=== PATIENT | male | born 1985 | race Caucasian/White ===

== ENCOUNTER 2018-11-20 14:57 | Emergency (ER) | payer OTHER, SELFPAY ==
--- NOTE | 2018-11-20 14:59 | W.ED.GENAD ---
Discharge Plan Disposition Patient Disposition: HOME Discharge Details Chief Complaint: Allergic Clinical Impression: Bee sting Primary Care Provider: Cesar Almanzar ED Provider: Dave Benson Home Meds and New Rx's Prescriptions: No Action calcium carbonate 500 MG tablet,chewable 500 - 1,000 mg CH PRN PRN (Reason: Heartburn) RF: 0 Excedrin Migraine 1 EACH tablet 2 - 4 ea PO PRN PRN (Reason: Headaches) RF: 0 ondansetron 4 MG tablet,disintegrating 4 mg PO Q6H PRN PRNQty: 10 RF: 1 methylphenidate HCl 20 mg Tablet 20 mg PO DAILY RF: 0 Discharge Instructions Instructions: Insect Bite or Sting (ED) Additional Instructions: You were seen in the emergency department today for evaluation of a bee sting. Return to the emergency department immediately if you develop any vomiting, difficulty breathing, feeling like your throat is closing, or for any other concerning or worsening symptoms at all. Referrals: Cesar Almanzar [Primary Care Provider] - Medical Decision Making This patient is a 33-year-old male who presents to the emergency department with a chief complaint of possible allergic reaction to bee stings. Patient currently has no evidence of allergic reaction or anaphylaxis. He will be observed in the emergency department for 1 hour. If he continues to look well without any evidence of allergic reaction, he will be discharged home. Patient will be provided return precautions and discharge instructions. He agrees with this plan. HPI This patient is a 33-year-old male who presents to the emergency department with concern that he might have an allergic reaction. He was stung by a bee about 30 minutes ago. One stung him behind the right ear and one stung him on the chest. He states that when he was much younger, around age 6 or 7 he had an allergic reaction to bee stings. He denies any nausea, vomiting, abdominal pain, difficulty breathing or rash. No throat swelling. He has been sick recently with cold symptoms. Otherwise no other recent illness. Nothing has made it better or worse. It is a burning pain behind the right ear and a sharp pain on his chest. General Date/Time Provider Initiated Documentation: 11/20/18 14:59. Related Data Home Medications Medication Instructions Recorded Confirmed Excedrin Migraine 2 - 4 ea PO PRN PRN 06/04/15 11/20/18 calcium carbonate 500 - 1,000 mg CH PRN PRN 06/04/15 11/20/18 ondansetron 4 mg PO Q6H PRN PRN #10 tabef 06/05/15 11/20/18 methylphenidate HCl 20 mg PO DAILY 11/20/18 11/20/18 Previous Rx's Medication Instructions Recorded ondansetron 4 mg PO Q6H PRN PRN #10 tabef 06/05/15 Allergies Allergy/AdvReac Type Severity Reaction Status Date / Time bees Allergy Uncoded 11/20/18 15:05 pollen Allergy Visual Uncoded 01/11/16 08:30 Disturbances Review of Systems Review of Systems Gen: no fevers. Card: no chest pain. Resp: No cough, difficulty breathing. Abd: no vomiting, abd pain. [facility] Medical History Allergic rhinitis Migraine, unspecified, intractable, with status migrainosus Sleep disturbance Surgical History Appendectomy Social History Smoking/Tobacco Use Status: Former Tobacco Use Alcohol Intake: current Drug use: Never Substance use type: does not use Do you feel safe in your relationship?: Yes Exam Narrative Exam Narrative: Gen: no acute distress, alert. Eyes: Pupils equal, reactive to light, EOMs intact. ENT: nose and ears normal, posterior pharynx without injection or swelling. Neck: normal ROM. Lung: Clear to auscultation bilaterally, no respiratory distress. Card: RRR, normal S1, S2, no M/R/G. 2+ radial pulses bilaterally. Abd: soft, non-tender, no hepatosplenomegaly. Upper extremity: no evidence of trauma. Lower extremity: no edema. Neuro: speech normal, no gross motor deficits. Psych: alert and oriented to person, place time, normal affect. Skin: warm, intact.
[2018-11-20 15:01] VITALS: BP 140/86; PULSE 99; RESP 16; TEMP 36.8
[2018-11-20 15:44] VITALS: BP 140/80; PULSE 77; RESP 16; TEMP 36.8; O2SAT 97
== END 2018-11-20 15:40 | disposition home or self-care (01) ==
PROVIDERS: Emergency Provider Emergency Medicine; PCP Family Medicine
DX: T63.441A Toxic effect of venom of bees, accidental (unintentional), initial encounter (principal)
CPT/HCPCS: 99282

== ENCOUNTER 2019-03-23 16:35 | Outpatient (REF) | payer OTHER, SELFPAY ==
[2019-03-23 19:09] LABS: Anion Gap 9.8 mmol/L (3-11); BUN 20 mg/dL (7-18); CO2 27.2 mmol/L (21.0-32.0); CREATININE 1.06 mg/dL (0.70-1.30); Calcium 9.3 mg/dL (8.5-10.1); Chloride 104 mmol/L (98-107); Glucose 92 mg/dL (74-106); Potassium 4.1 mmol/L (3.5-5.1); Sodium 141 mmol/L (136-145)
[2019-03-23 19:27] LABS: HGB 14.8 g/dL (13.5-17.5); Mean Corp. HGB Concentration 34.4 g/dL (32.0-36.0); Mean Corpuscular Hemoglobin 28.8 pg (27.0-33.0); Mean Corpuscular Volume 83.7 fL (80-95); Mean Platelet Volume 11.3 fL (8.0-11.0); Platelet Count 275 x1000/uL (130-400); RBC 5.14 m/cumm (4.50-6.00); RBC Distribution Width 12.6 % (11.8-14.1)
== END 2019-03-23 16:55 ==
LOC: NCHCN 16:35
PROVIDERS: PCP Family Medicine; Visit Provider Nurse Practitioner Family
DX: R10.9 Unspecified abdominal pain (principal); K92.1 Melena
CPT/HCPCS: 80048; 85027

== ENCOUNTER 2019-03-27 07:26 | Outpatient (CLI) | payer OTHER, SELFPAY ==
--- NOTE | 2019-03-27 09:05 | DI.US_ITS ---
EXAM: US RENAL CLINICAL HISTORY: ABDOMINAL WALL PAIN, RIGHT LOWER QUADRANT, PT QUESTIONS KIDNEY STONES, HEAVY CONSU MPTION OF ENERGY DRINK TECHNIQUE: Ultrasound performed using standard protocol. COMPARISON: HERNIA INGUINAL from 09/13/2017 FINDINGS: The left kidney measures 11.3 centimeters long. No solid renal mass, calculus or obstruction is iden tified. Blood flow is seen to the left kidney. The right kidney measures 11.2 centimeters long. No renal calculus or obstruction is seen. There is a question of a 2.2 x 2.7 x 1.8 centimeter solid renal mass in the superior pole medially. CT scan should be considered for further evaluation. There is blood flow to the right kidney. The prevoid urinary bladder volume was only 17 cc. Both ureteral jets were visualized. Prostate gla nd is within normal limits at 7.2 cc. IMPRESSION: Question of a 2.7 centimeter soft tissue mass arising from the superior pole of the right kidney. CT scan is recommended for further evaluation.
--- NOTE | 2019-03-27 09:20 | DI.US_ITS ---
EXAM: US HERNIA CLINICAL HISTORY: ABDOMINAL WALL PAIN, RIGHT LOWER QUADRANT, WORSE AFTER ACTIVITY, R10.9, S/P HERNIA REPAIR X2 TECHNIQUE: Ultrasound performed using standard protocol. COMPARISON: HERNIA INGUINAL from 09/13/2017 FINDINGS: No sonographic evidence of a right inguinal hernia is noted. No cystic or solid mass is seen sonogra phically. If there is continued clinical concern, a CT scan may be obtained for further evaluation.
== END 2019-03-27 07:46 ==
PROVIDERS: PCP Family Medicine; Visit Provider Nurse Practitioner Family
DX: R10.31 Right lower quadrant pain (principal); Z98.890 Other specified postprocedural states; N28.89 Other specified disorders of kidney and ureter
CPT/HCPCS: 76770; 76857

== ENCOUNTER 2019-03-29 00:33 | Outpatient (CLI) | payer OTHER, SELFPAY ==
[2019-03-29] MEDS: Omnipaque 350 MG/ML 100 ML BTL IJ (09:08)
--- NOTE | 2019-03-29 09:10 | DI.CT_ITS ---
EXAM: CT ABDOMEN W CLINICAL HISTORY: F/U ABNL US, KIDNEY MASS,N28.89,ABD WALL PAIN,R10.9 TECHNIQUE: Imaging Protocol: Axial computed tomography images with coronal and sagittal reformatted images were created and reviewed CONTRAST MATERIAL: Intravenous: Omnipaque 350 Contrast volume:100 mL contrast route:IV - Oral: Yes COMPARISON: US RENAL from 03/27/2019 US HERNIA from 03/27/2019 FINDINGS: ABDOMEN: Lung Bases: Normal where visualized. Liver: Normal density. No measurable mass. Gallbladder and biliary tract: No radiodense calculus or dilation. Pancreas: Normal density, no abnormal calcifications or inflammatory process. Spleen: Normal. Kidneys: Normal size, contour and axis. No radiodense stones or obstructive uropathy. No masses seen. Adrenal glands: No masses seen. Abdominal Aorta: Abdominal portion non-dilated. Lymph nodes: Within normal limits. Bones: Within normal limits. Peritoneum: No pneumoperitoneum or ascites. IMPRESSION: Unremarkable CT scan of the abdomen. No evidence of a renal mass. DATA REPOSITORY: All CT scans at this facility are submitted to the National Radiology Data Registry (NRDR) Dose Index Registry (DIR) with the [employer] (A[employer]). RADIATION OPTIMIZATION: All CT scans at this facility use at least one of these dose optimization te chniques: automated exposure control; mA and/or kV adjustment per patient size (includes targeted exa ms where dose is matched to clinical indication); or iterative reconstruction.
[2019-03-29] MEDS: Breeza Beverage 473 ML BTL PO (09:11)
[2019-03-29] MEDS: Omnipaque 350 MG/ML 50 ML BTL PO (09:13)
== END 2019-03-29 00:53 ==
PROVIDERS: PCP Family Medicine; Visit Provider Nurse Practitioner Family
DX: N28.89 Other specified disorders of kidney and ureter (principal); R10.84 Generalized abdominal pain
CPT/HCPCS: 74160; J3490; Q9967

== ENCOUNTER 2019-12-19 17:38 | Outpatient (REF) | payer OTHER, SELFPAY ==
[2019-12-26 00:03] LABS: Methylphenidate 510 ng/mL; Ritalinic Acid >10000 ng/mL
== END 2019-12-19 17:58 ==
LOC: NCHCN 17:38
PROVIDERS: PCP Family Medicine; Visit Provider Family Medicine
DX: R41.840 Attention and concentration deficit (principal)
CPT/HCPCS: 80360

== ENCOUNTER 2020-01-31 14:37 | Outpatient (REF) | payer OTHER, SELFPAY ==
[2020-02-04 17:32] LABS: Patient Race White; SARS-CoV-2 RNA Undetected (Undetected); SARS-CoV-2 Specimen Source Nasal
== END 2020-01-31 14:57 ==
LOC: NCHCN 14:37
PROVIDERS: PCP Family Medicine; Visit Provider Physician Assistant
DX: Z20.828 Contact with and (suspected) exposure to other viral communicable diseases (principal)
CPT/HCPCS: U0003

== ENCOUNTER 2020-03-26 18:22 | Outpatient (REF) | payer OTHER, SELFPAY ==
[2020-03-28 15:09] LABS: COVID-19 RT-PCR UVMMC Result Negative (Negative)
== END 2020-03-26 18:42 ==
LOC: NCHCN 18:22
PROVIDERS: PCP Family Medicine; Visit Provider Nurse Practitioner Family
DX: J06.9 Acute upper respiratory infection, unspecified (principal)
CPT/HCPCS: U0003

== ENCOUNTER 2022-07-16 18:07 | Outpatient (REF) | payer OTHER, SELFPAY ==
[2022-07-16 18:43] LABS: Hemoglobin A1C 5.8 % (<5.7)
[2022-07-16 18:44] LABS: Calculated LDL 202 mg/dL (<100); Cholesterol 275 mg/dL (<200); HDL Cholesterol 44 mg/dL (40-60); Triglyceride 145 mg/dL (<150)
== END 2022-07-16 18:08 | disposition home or self-care (01) ==
LOC: NCHCN 18:07
PROVIDERS: PCP Family Medicine; Visit Provider Family Medicine
DX: Z00.00 Encounter for general adult medical examination without abnormal findings (principal); Z13.1 Encounter for screening for diabetes mellitus; Z13.220 Encounter for screening for lipoid disorders
CPT/HCPCS: 80061; 83036

== ENCOUNTER 2023-01-26 17:30 | Outpatient (REF) | payer OTHER, SELFPAY ==
[2023-01-26 19:49] LABS: Hemoglobin A1C 5.3 % (<5.7)
[2023-01-26 20:00] LABS: Calculated LDL 152 mg/dL (<100); Cholesterol 223 mg/dL (<200); HDL Cholesterol 46 mg/dL (40-60); Triglyceride 127 mg/dL (<150)
== END 2023-01-26 17:31 | disposition home or self-care (01) ==
LOC: NCHCN 17:30
PROVIDERS: PCP Family Medicine; Visit Provider Family Medicine
DX: E78.5 Hyperlipidemia, unspecified (principal); R73.03 Prediabetes
CPT/HCPCS: 80061; 83036

== ENCOUNTER 2023-10-20 19:57 | Outpatient (REF) | payer OTHER, SELFPAY ==
--- OUTSIDE RECORDS SUMMARY | 2023-10-20 19:59 | XMS_ITS | Clinical Summary ---
Author Organization [facility] Address [address] [place] [address] Care Team Providers Care Site Leader Name Role Phone Unknown, Provider Primary Care Provider [phone] Social History Tobacco Use Types Packs/Day Years Used Date Smoking Tobacco: Never Assessed Sex and Gender Information Value Date Recorded Sex Assigned at Not on file Gender Identity Not on file Sexual Orientation Not on file Plan of Treatment Health Maintenance Due Date Last Done Comments Hepatitis C Screen 1986 Hepatitis B Vaccine (1 of 3 - 19+ 3-dose series) 03/13 COVID-19 Vaccine ( season) 2022 Care Teams Site Leader Relationship Specialty Start Date End Date Unknown, Provider, PCP - General 12/03/11
--- OUTSIDE RECORDS SUMMARY | 2023-10-20 19:59 | XMS_ITS | Encounter Summary ---
Author Organization [facility] Address [address] [place] [address] Care Team Providers Care Hook Up Driver Name Role Phone Unknown, Provider Primary Care Provider [phone] Encounter Details Date Type Department Care Team (Late st Contact Info) Description 03/27/2020 Lab Requisition [facility] - [address] [address] Outr Resulting Lab, Provider Social History Tobacco Use Types Packs/Day Years Used Date Smoking Tobacco: Never Assessed Sex and Gender Information Value Date Recorded Sex Assigned at Not on file Gender Identity Not on file Sexual Orientation Not on file documented as of this encounter Plan of Treatment Not on file documented as of this encounter Procedures Procedure Name Priority Date/Time Associated Diagnosis Comments ZZCOVID-19 TEST [facility] PCR Today 03/26/2020 17:40 EST COVID-19 TESTING Routine 03/26/2020 17:4 0 EST documented in this encounter Results * COVID-19 TEST [facility] PCR (03/26/2020 17:40 EST) Swab ENTIRE NASOPHARYNX / Unknown 03/26/2020 17:40 EST 03/27/2020 15:42 EST Provider Outr Resulting Lab MICROBIOLOGY - GENERAL ORDERABLES [facility] [address] [place] [address] * COVID-19 TESTING (03/26/2020 17:40 EST) COVID-19 rt-PCR Result Negative Negative 03/28/2020 15:02 EST [facility] Comment: Negative results do not preclude 2019-nCoV infection and should not be used as the sole basis for treatment or other patient management decisions. Negative results must be combined with clinical observations, patient history, and epidemiological information. This test was developed and its performance characteristics determined by [facility]. It has not been cleared or approved by the [place] Food and Drug Administration. FDA does not require this test to go through premarket FDA review. This test is used for clinical purposes. It should not be regarded as investigational or for research. This laboratory is certified under the Clinical Laboratory Improvement Amendments (CLIA) as qualified to perform high complexity clinical laboratory testing. This test is based on the [facility] COVID-19 Emergency Use Authorization (EUA) assay, with minor modification as defined by the FDA Performed on the [employer] Flex. Performing Lab [facility] Lab 03/28/2020 15:02 EST [facility] Swab 03/26/2020 17:4 0 EST 03/27/2020 15:42 EST Provider Outr Resulting Lab MICROBIOLOGY - GENERAL ORDERABLES [facility] [address] [place] [address] documented in this encounter Visit Diagnoses Not on filedocumented in this encounter Care Teams Hook Up Driver Relationship Specialty Start Date End Date Unknown, Provider, PCP - General 12/03/11 documented as of this encounter
--- OUTSIDE RECORDS SUMMARY | 2023-10-20 19:59 | XMS_ITS | Continuity of Care Document ---
Author Organization [facility] Address [address] [place] [address] Encounter LTTL_MT FIN NBR [id number] Date(s): 09/05/23 - 09/06/23 [facility] [address] [place] [address]- Encounter Diagnosis Torticollis(Discharge Diagnosis) - 09/05/23 Syncope(Discharge Diagnosis) - 09/05/23 Discharge Disposition: Home f/u Internal Provider Attending Physician: Donovan Villeda MD Admitting Physician: Donovan Villeda MD Allergies, Adverse Reactions, Alerts No Known Medication Allergies Medications ketorolac 10 mg oral tablet 10 mg = 1 tab, Oral, every 6 hr, PRN as needed for pain, not to exceed 40 mg/day and 5 days duration for all dose forms, # 12 cap, 0 Refill(s), Pharmacy: [facility], 175, cm, 09/05/23 22:30:00 EDT, Height, 108.86, kg, 09/05/23 22:35:00 EDT, Weight Dosing Start Date: 09/06/23 Status: Ordered methylphenidate 20 mg/8 hr oral tablet, extended release TAKE ONE TABLET BY MOUTH EVERY MORNING WITH 10 MG AT NOON Start Date: 09/05/23 Status: Ordered Valium 5 mg oral tablet 5 mg = 1 tab, Oral, every 8 hr, PRN pain, # 12 tab, 0 Refill(s), Pharmacy: [facility], 175, cm, 09/05/23 22:30:00 EDT, Height, 108.86, kg, 09/05/23 22:35:00 EDT, Weight Dosing Start Date: 09/06/23 Status: Ordered Mental Status 09/05/23 Eye Opening Response [place] Spontaneous ly Best Verbal Response Juan Oriented Best Motor Response [place] Obeys comman ds Juan Coma Score 15 Results Laboratory List Name Date CBC w/ Diff 09/05/23 Comprehensive Metabolic Panel (CMP) 09/04 Magnesium Level 09/05/23 Sedimentation Rate (ESR) 09/05/23 Automated Diff 09/05/23 Most recent to oldest [Reference Range]: 1 WBC [4.8-10.8 K/mcL] 7.9 K/mcL (09/05/23 11:06 PM) RBC [4.70-6.10 Million/mcL] 5.05 Million /mcL (09/05/23 11:06 PM) Neutro Auto [42.2-75.2 %] 59.6 % (09/05/23 11:06 PM) Lymph Auto [20.5-51.1 %] 27.7 % (09/05/23 11:06 PM) Laurel Auto [1.7-9.3 %] 7.5 % (09/05/23 11:06 PM) Basophil Auto [0.0-0.8 %] 0.6 % (09/05/23 11:06 PM) BUN [7-25 mg/dL] 12 mg/dL (09/05/23 11:06 PM) Glucose Level [70-109 mg/dL] 137 mg/dL *HI* (09/05/23 11:06 PM) Potassium Level [3.5-5.1 mmol/L] 3.8 mmo l/L 1 (09/05/23 11:06 PM) Baso Absolute [0.0-0.2 K/mcL] 0.0 K/mcL (09/05/23 11:06 PM) MCV [80.0-94.0 fL] 85.0 fL (09/05/23 11:06 PM) AST [13-39 IntlUnit/L] 24 IntlUnit/L (09/05/23 11:06 PM) ALT [7-52 IntlUnit/L] 33 IntlUnit/L 2 (09/05/23 11:06 PM) MCHC [32.0-37.0 g/dL] 35.8 g/dL (09/05/23 11:06 PM) Osmolality [275-295 mOsm/kg] 276 mOsm/kg (09/05/23 11:06 PM) Sodium Level [136-145 mmol/L] 137 mmol/L (09/05/23 11:06 PM) Lymph Absolute [1.2-3.4 K/mcL] 2.2 K/mcL (09/05/23: PM) Hct [42.0-52.0 %] 42.9 % (09/05/23: PM) Calcium Level [8.6-10.3 mg/dL] 9.2 mg/dL (09/05/23: PM) Laurel Absolute [0.1-0.6 K/mcL] 0.6 K/mcL (09/05/23: PM) Albumin Level [3.5-5.7 g/dL] 4.2 g/dL (09/05/23 PM) Protein Total [6.4-8.9 g/dL] 6.9 g/dL (09/05/23: PM) MCH [27.0-31.0 pg] 30.4 pg (09/05/23: PM) Magnesium Level [1.9-2.7 mg/dL] 2.2 mg/d L (09/05/23: PM) Neutro Absolute [1.4-6.5 K/mcL] 4.7 K/mc L (09/05/23: PM) Bilirubin Total [0.3-1.0 mg/dL] 0.3 mg/d L (09/05/23:06 PM) Hgb [14.0-18.0 g/dL] 15.3 g/dL (09/05/23: PM) Alk Phos [34-104 IntlUnit/L] 72 IntlUnit /L (09/05/23:06 PM) MPV [7.4-10.4 fL] 9.4 fL (09/05/23:06 PM) Platelets [130-400 K/mcL] 236 K/mcL (09/05/23: PM) CO2 [21-31 mmol/L] 28 mmol/L (09/05/23 11:06 PM) Eos Absolute [0.0-0.2 K/mcL] 0.4 K/mcL *HI* (09/05/23: PM) Chloride Level [98-107 mmol/L] 101 mmol/ L (09/05/23 11:06 PM) RDW-CV [11.5-14.5 %] 12.9 % (09/05/23 11: PM) A/G Ratio [1.0-2.5 g/dL] 1.6 g/dL (09/05/23 11:06 PM) BUN/Creat Ratio [8.0-20.0] 9.2 (09/05/23: PM) Globulin [2.3-3.5 g/dL] 2.7 g/dL (09/05/23 11:06 PM) Slide Review Not Indicated (09/05/23: PM) Creatinine Level [0.70-1.30 mg/dL] 1.30 mg/dL (09/05/23: PM) Anion Gap [3.0-12.0] 8.0 (09/05/23 11: PM) Eos, Auto [0.00-3.00 %] 4.60 % *HI* (09/05/23 11: PM) eGFR CKD-EPI [>=60 mL/min/1.73 m2] 73 mL /min/1.73 m2 (09/05/23 11:06 PM) ESR, Westergren [0-15 mm/hr] <1 mm/hr 3 (09/05/23 11:06 PM) 1Result Comment: SLIGHT HEMOLYSIS MODERATE LIPEMIA 2Result Comment: SLIGHT HEMOLYSIS MODERATE LIPEMIA 3Result Comment: Results verified by repeat analysis. Vital Signs Most recent to oldest [Reference Range]: 1 2 3 Temperature Temporal Artery [36-38 Deg C] 36.4 Deg C (09/05/23 10:30 PM) Heart Rate Monitored [60-100 bpm] 76 bpm (09/06/23 12:00 AM) 80 bpm (09/05/23 11:30 PM) 81 bpm (09/05/23 11:00 PM) Respiratory Rate [12-24 br/min] 24 br/min (09/06/23 12:00 AM) 21 br/min (09/05/23 11:30 PM) 20 br/min (09/05/23 11:00 PM) Blood Pressure [90-140/60-90 mmHg] 114/78mmHg (09/06/23 12:00 AM) 125/74mmHg (09/05/23 11:30 PM) 133/79mmHg (09/05/23 11:00 PM) Mean Arterial Pressure, Cuff [65-140 mmHg] 90 mmHg (09/06/23 12:00 AM) 91 mmHg (09/05/23 11:30 PM) 97 mmHg (09/05/23 11:00 PM) Mean Arterial Pressure Cuff 89 mmHg (09/06/23 12:00 AM) 86 mmHg (09/05/23 11:30 PM) Weight 108.86 kg (09/05/23 10:30 PM) Weight Dosing 108.860 kg (09/05/23 10:30 PM) Height 175 cm (09/05/23 10:30 PM) Body Mass Index 35.55 kg/m2 (09/05/23 10:30 PM) Social History Social History Type Response Tobacco Never tobacco user T obacco Use:. Sex Hospital Discharge Instructions Patient Education 09/05/2023 23:29:46 Syncope, Adult Syncope, Adult Syncope refers to a condition in which a person temporarily loses consciousness. Syncope may also be called fainting or passing out. It is caused by a sudden decrease in blood flow to the brain. Thiscan happen for a variety of reasons. Most causes of syncope are not dangerous. It can be triggered by things such as needle sticks, seeing blood, pain, or intense emotion. However, syncope can also be a sign of a serious medical problem, such as a heart abnormality. Other causes can include dehydration, migraines, or taking medicines that lower blood pressure. Your health care provider may do tests to find the reason why you are having syncope. If you faint, get medical help right away. Call your local emergency services (911 in the [place] Follow these instructions at home: Pay attention to any changes in your symptoms. Take these actions to stay safe and to help relieve your symptoms: Knowing when you may be about to faint ??? Signs that you may be about to faint include: ??? Feeling dizzy, weak, light-headed, or like the room is spinning. ??? Feeling nauseous. ??? Seeing spots or seeing all white or all black in your field of vision. ??? Having cold, clammy skin or feeling warm and sweaty. ??? Hearing ringing in the ears (tinnitus). ??? If you start to feel like you might faint, sit or lie down right away. If sitting, put your head down between your legs. If lying down, raise (elevate) your feet above the level of your heart. ??? Breathe deeply and steadily. Wait until all the symptoms have passed. ??? Have someone stay with you until you feel stable. Medicines ??? Take wvcy-zsl-zwbklnd and prescription medicines only as told by your health care provider. ??? If you are taking blood pressure or heart medicine, get up slowly and take several minutes to sit and then stand. This can reduce dizziness and decrease the risk of syncope. Lifestyle ??? Do not drive, use machinery, or play sports until your health care provider says it is okay. ??? Do not drink alcohol. ??? Do not use any products that contain nicotine or tobacco. These products include cigarettes, chewing tobacco, and vaping devices, such as e-cigarettes. If you need help quitting, ask your health care provider. ??? Avoid hot tubs and saunas. General instructions ??? Talk with your health care provider about your symptoms. You may need to have testing to understand the cause of your syncope. ??? Drink enough fluid to keep your urine pale yellow. ??? Avoid prolonged standing. If you must stand for a long time, do movements such as: ??? Moving your legs. ??? Crossing your legs. ??? Flexing and stretching your leg muscles. ??? Squatting. ??? Keep all follow-up visits. This is important. Contact a health care provider if: ??? You have episodes of near fainting. Get help right away if: ??? You faint. ??? You hit your head or are injured after fainting. ??? You have any of these symptoms that may indicate trouble with your heart: ??? Fast or irregular heartbeats (palpitations). ??? Unusual pain in your chest, abdomen, or back. ??? Shortness of breath. ??? You have a seizure. ??? You have a severe headache. ??? You are confused. ??? You have vision problems. ??? You have severe weakness or trouble walking. ??? You are bleeding from your mouth or rectum, or you have black or tarry stool. These symptoms may represent a serious problem that is an emergency. Do not wait to see if your symptoms will go away. Get medical help right away. Call your local emergency services (911 in the [place] Do not drive yourself to the hospital. Summary ??? Syncope refers to a condition in which a person temporarily loses consciousness. Syncope may also be called fainting or passing out. It is caused by a sudden decrease in blood flow to the brain. ??? Signs that you may be about to faint include dizziness, feeling light- headed, feeling nauseous,sudden vision changes, or cold, clammy skin. ??? Even though most causes of syncope are not dangerous, syncope can be a sign of a serious medical problem. Get help right away if you faint. ??? If you start to feel like you might faint, sit or lie down right away. If sitting, put your head down between your legs. If lying down, raise (elevate) your feet above the level of your heart. This information is not intended to replace advice given to you by your health care provider. Make sure you discuss any questions you have with your health care provider. Document Revised: 07/10/2021 Document Reviewed: 07/10/2021 [employer] Patient Education ?? 2022 [employer]. 09/05/2023 23:29:42 Acute Torticollis, Adult Acute Torticollis, Adult Torticollis is a condition in which the muscles of the neck tighten (contract) abnormally, causing the neck to twist and the head to move into an unnatural position. Torticollis that develops suddenly is called acute torticollis. People with acute torticollis may have trouble turning their head. The condition can be painful and may range from mild to severe. What are the causes? This condition may be caused by: ??? Sleeping in an awkward position. This is common. ??? Extending or twisting the neck muscles beyond their normal position. ??? An injury to the neck muscles. ??? An infection. ??? A tumor. ??? Certain medicines. ??? Long-lasting spasms of the neck muscles. In some cases, the cause may not be known. What increases the risk? You are more likely to develop this condition if: ??? You have a condition associated with loose ligaments, such as Down syndrome. ??? You have a brain condition that affects vision, such as strabismus. What are the signs or symptoms? The main symptom of this condition is tilting of the head to one side. Other symptoms include: ??? Pain in the neck. ??? Trouble turning the head from side to side or up and down. How is this diagnosed? This condition may be diagnosed based on: ??? A physical exam. ??? Your medical history. ??? Imaging tests, such as: ??? An X-ray. ??? An ultrasound. ??? A CT scan. ??? An MRI. How is this treated? Treatment for this condition depends on what is causing the condition. Mild cases may go away without treatment. Treatment for more serious cases may include: ??? Medicines or shots to relax the muscles. ??? Other medicines, such as antibiotics, to treat the underlying cause. ??? Wearing a soft neck collar. ??? Physical therapy and stretching exercises to improve movement and strength in your neck. ??? Neck massage. In severe cases, surgery may be needed to repair dislocated or broken bones or to treat nerves in the neck. Follow these instructions at home: ??? Take tpoe-avn-umidduh and prescription medicines only as told by your health care provider. ??? Do stretching exercises and massage your neck as told by your health care provider. ??? If directed, apply heat to the affected area as often as told by your health care provider. Usethe heat source that your health care provider recommends, such as a moist heat pack or a heating pad. ??? Place a towel between your skin and the heat source. ??? Leave the heat on for 20???30 minutes. ??? Remove the heat if your skin turns bright red. This is especially important if you are unable to feel pain, heat, or cold. You have a greater risk of getting burned. ??? If you wake up with torticollis after sleeping, check your bed or sleeping area. Look for lumpypillows or unusual objects. Make sure your bed and sleeping area are comfortable. ??? Keep all follow-up visits. This is important. Contact a health care provider if: ??? You have a fever. ??? Your symptoms do not improve or they get worse. Get help right away if: ??? You have trouble breathing. ??? You make loud, high-pitched sounds when you breathe, most often when you breathe in (stridor). ??? You start to drool. ??? You have trouble swallowing or pain when swallowing. ??? You develop numbness or weakness in your hands or feet. ??? You have changes in your speech, understanding, or vision. ??? You are in severe pain. ??? You cannot move your head or neck. These symptoms may represent a serious problem that is an emergency. Do not wait to see if the symptoms will go away. Get medical help right away. Call your local emergency services (911 in the [place] Do not drive yourself to the hospital. Summary ??? Torticollis is a condition in which the muscles of the neck tighten (contract) abnormally, causing the neck to twist and the head to move into an unnatural position. Torticollis that develops suddenly is called acute torticollis. ??? Treatment for this condition depends on what is causing the condition. Mild cases may go away without treatment. ??? Do stretching exercises and massage your neck as told by your health care provider. You may also be instructed to apply heat to the area. ??? Contact your health care provider if your symptoms do not improve or they get worse. This information is not intended to replace advice given to you by your health care provider. Make sure you discuss any questions you have with your health care provider. Document Revised: 06/28/2020 Document Reviewed: 06/28/2020 [employer] Patient Education ?? 2022 [employer]. Emergency department Discharge instructions * Donovan Villeda MD: PERFORM Event Display: ED Discharge Information Authored Date: [id number] REBEKA ROTH :1985 Age:38 years Sex:Male Visit Date:09/05/2023 Discharge Instructions We would like to thank you for allowing us to assist you with your healthcare needs. The following includes patient education materials and information regarding your injury/illness. Diagnosis from Today's Visit Torticollis Syncope Discharge Vitals Temperature??(Temporal Artery) 97.5 ??F (36.4 ??C) Heart Rate??(Monitored) 76 Respiratory Rate?? 24 Blood Pressure?? 114/78?? SpO2?? 95% Height?? 68.90 in (175 cm) Weight?? 240.04 lb (108.86 kg) BMI?? 35.55 Allergies No Known Medication Allergies What to Do Next Instructions from Your Care Team Rest. ??Stay hydrated. ??Toradol as prescribed for pain.?? Valium for pain and spasm??as prescribed.?? Follow-up with leg doctor return for repeat syncope or other problems You were treated today on an emergency basis; it may be villalpando to contact your primary care provider to notify them of your visit today. You may have been referred to your regular doctor or a specialist, please follow up as instructed. If your condition worsens or you can't get in to see the doctor, contact the Emergency Department. Medications What How Much When Instructions Next Dose New diazePAM (Valium 5 mg oral tablet) 1 tab Oral (given by mouth) Every 8 hours as needed for pain Pickup at [facility] New ketorolac (ketorolac 10 mg oral tablet) 1 tab Oral (given by mouth) Every 6 hours as needed for as needed for pain not to exceed 40 mg/ day and 5 days duration for all dose forms ?? Pickup at [facility] Unchanged methylphenidate (methylphenidate 20 mg/ 8 hr oral tablet, extended release) TAKE ONE TABLET BY MOUTH EVERY MORNING WITH 10 MG AT NOON ?? Pharmacy Information [facility]: [address], [place] [id number] [phone] [employer] Syncope, Adult Syncope refers to a condition in which a person temporarily loses consciousness. Syncope may also be called fainting or passing out. It is caused by a sudden decrease in blood flow to the brain. Thiscan happen for a variety of reasons. Most causes of syncope are not dangerous. It can be triggered by things such as needle sticks, seeing blood, pain, or intense emotion. However, syncope can also be a sign of a serious medical problem, such as a heart abnormality. Other causes can include dehydration, migraines, or taking medicines that lower blood pressure. Your health care provider may do tests to find the reason why you are having syncope. If you faint, get medical help right away. Call your local emergency services (911 in the [place] Follow these instructions at home: Pay attention to any changes in your symptoms. Take these actions to stay safe and to help relieve your symptoms: Knowing when you may be about to faint ? Signs that you may be about to faint include: ? Feeling dizzy, weak, light-headed, or like the room is spinning. ? Feeling nauseous. ? Seeing spots or seeing all white or all black in your field of vision. ? Having cold, clammy skin or feeling warm and sweaty. ? Hearing ringing in the ears (tinnitus). ? If you start to feel like you might faint, sit or lie down right away. If sitting, put your head down between your legs. If lying down, raise (elevate) your feet above the level of your heart. ? Breathe deeply and steadily. Wait until all the symptoms have passed. ? Have someone stay with you until you feel stable. Medicines ? Take bcar-fmg-hdkxjci and prescription medicines only as told by your health care provider. ? If you are taking blood pressure or heart medicine, get up slowly and take several minutes to sit and then stand. This can reduce dizziness and decrease the risk of syncope. Lifestyle ? Do not drive, use machinery, or play sports until your health care provider says it is okay. ? Do not drink alcohol. ? Do not use any products that contain nicotine or tobacco. These products include cigarettes, chewing tobacco, and vaping devices, such as e-cigarettes. If you need help quitting, ask your health careprovider. ? Avoid hot tubs and saunas. General instructions ? Talk with your health care provider about your symptoms. You may need to have testing to understandthe cause of your syncope. ? Drink enough fluid to keep your urine pale yellow. ? Avoid prolonged standing. If you must stand for a long time, do movements such as: ? Moving your legs. ? Crossing your legs. ? Flexing and stretching your leg muscles. ? Squatting. ? Keep all follow-up visits. This is important. Contact a health care provider if: ? You have episodes of near fainting. Get help right away if: ? You faint. ? You hit your head or are injured after fainting. ? You have any of these symptoms that may indicate trouble with your heart: ? Fast or irregular heartbeats (palpitations). ? Unusual pain in your chest, abdomen, or back. ? Shortness of breath. ? You have a seizure. ? You have a severe headache. ? You are confused. ? You have vision problems. ? You have severe weakness or trouble walking. ? You are bleeding from your mouth or rectum, or you have black or tarry stool. These symptoms may represent a serious problem that is an emergency. Do not wait to see if your symptoms will go away. Get medical help right away. Call your local emergency services (911 in the [place] Do not drive yourself to the hospital. Summary ? Syncope refers to a condition in which a person temporarily loses consciousness. Syncope may also be called fainting or passing out. It is caused by a sudden decrease in blood flow to the brain. ? Signs that you may be about to faint include dizziness, feeling light-headed, feeling nauseous, sudden vision changes, or cold, clammy skin. ? Even though most causes of syncope are not dangerous, syncope can be a sign of a serious medical problem. Get help right away if you faint. ? If you start to feel like you might faint, sit or lie down right away. If sitting, put your head down between your legs. If lying down, raise (elevate) your feet above the level of your heart. This information is not intended to replace advice given to you by your health care provider. Make sure you discuss any questions you have with your health care provider. Document Revised: 07/10/2021 Document Reviewed: 07/10/2021 [employer] Patient Education ?? 2022 [employer] Acute Torticollis, Adult Torticollis is a condition in which the muscles of the neck tighten (contract) abnormally, causing the neck to twist and the head to move into an unnatural position. Torticollis that develops suddenly is called acute torticollis. People with acute torticollis may have trouble turning their head. The condition can be painful and may range from mild to severe. What are the causes? This condition may be caused by: ? Sleeping in an awkward position. This is common. ? Extending or twisting the neck muscles beyond their normal position. ? An injury to the neck muscles. ? An infection. ? A tumor. ? Certain medicines. ? Long-lasting spasms of the neck muscles. In some cases, the cause may not be known. What increases the risk? You are more likely to develop this condition if: ? You have a condition associated with loose ligaments, such as Down syndrome. ? You have a brain condition that affects vision, such as strabismus. What are the signs or symptoms? The main symptom of this condition is tilting of the head to one side. Other symptoms include: ? Pain in the neck. ? Trouble turning the head from side to side or up and down. How is this diagnosed? This condition may be diagnosed based on: ? A physical exam. ? Your medical history. ? Imaging tests, such as: ? An X-ray. ? An ultrasound. ? A CT scan. ? An MRI. How is this treated? Treatment for this condition depends on what is causing the condition. Mild cases may go away without treatment. Treatment for more serious cases may include: ? Medicines or shots to relax the muscles. ? Other medicines, such as antibiotics, to treat the underlying cause. ? Wearing a soft neck collar. ? Physical therapy and stretching exercises to improve movement and strength in your neck. ? Neck massage. In severe cases, surgery may be needed to repair dislocated or broken bones or to treat nerves in the neck. Follow these instructions at home: ? Take vrzn-bob-xpnscex and prescription medicines only as told by your health care provider. ? Do stretching exercises and massage your neck as told by your health care provider. ? If directed, apply heat to the affected area as often as told by your health care provider. Use theheat source that your health care provider recommends, such as a moist heat pack or a heating pad. ? Place a towel between your skin and the heat source. ? Leave the heat on for 20???30 minutes. ? Remove the heat if your skin turns bright red. This is especially important if you are unable to feel pain, heat, or cold. You have a greater risk of getting burned. ? If you wake up with torticollis after sleeping, check your bed or sleeping area. Look for lumpy pillows or unusual objects. Make sure your bed and sleeping area are comfortable. ? Keep all follow-up visits. This is important. Contact a health care provider if: ? You have a fever. ? Your symptoms do not improve or they get worse. Get help right away if: ? You have trouble breathing. ? You make loud, high-pitched sounds when you breathe, most often when you breathe in (stridor). ? You start to drool. ? You have trouble swallowing or pain when swallowing. ? You develop numbness or weakness in your hands or feet. ? You have changes in your speech, understanding, or vision. ? You are in severe pain. ? You cannot move your head or neck. These symptoms may represent a serious problem that is an emergency. Do not wait to see if the symptoms will go away. Get medical help right away. Call your local emergency services (911 in the [place] Do not drive yourself to the hospital. Summary ? Torticollis is a condition in which the muscles of the neck tighten (contract) abnormally, causing the neck to twist and the head to move into an unnatural position. Torticollis that develops suddenly is called acute torticollis. ? Treatment for this condition depends on what is causing the condition. Mild cases may go away without treatment. ? Do stretching exercises and massage your neck as told by your health care provider. You may also beinstructed to apply heat to the area. ? Contact your health care provider if your symptoms do not improve or they get worse. This information is not intended to replace advice given to you by your health care provider. Make sure you discuss any questions you have with your health care provider. Document Revised: 06/28/2020 Document Reviewed: 06/28/2020 Elsevier Patient Education ?? 2022 [employer] Tests Performed Medications and Immunizations Administered Given Sodium Chloride 0.9%, 1000 mL, Medication Bolus Toradol, 30 mg, IV Valium, 5 mg, IV Lab Test Name Test Result Date/Time WBC 7.9 K/mcL 09/05/2023 23:06 EDT RBC 5.05 Million/mcL 09/05/2023 23:06 EDT Hgb 15.3 g/dL 09/05/2023 23:06 EDT Hct 42.9 % 09/05/2023 23:06 EDT MCV 85.0 fL 09/05/2023 23:06 EDT MCH 30.4 pg 09/05/2023 23:06 EDT MCHC 35.8 g/dL 09/05/2023 23:06 EDT RDW-CV 12.9 % 09/05/2023 23:06 EDT Platelets 236 K/mcL 09/05/2023 23:06 EDT MPV 9.4 fL 09/05/2023 23:06 EDT Neutro Auto 59.6 % 09/05/2023 23:06 EDT Lymph Auto 27.7 % 09/05/2023 23:06 EDT Laurel Auto 7.5 % 09/05/2023 23:06 EDT Eos, Auto 4.60 % 09/05/2023 23:06 EDT Basophil Auto 0.6 % 09/05/2023 23:06 EDT Neutro Absolute 4.7 K/mcL 09/05/2023 23:06 EDT Lymph Absolute 2.2 K/mcL 09/05/2023 23:06 EDT Laurel Absolute 0.6 K/mcL 09/05/2023 23:06 EDT Eos Absolute 0.4 K/mcL 09/05/2023 23:06 EDT Baso Absolute 0.0 K/mcL 09/05/2023 23:06 EDT Slide Review Not Indicated 09/05/2023 23:06 EDT ESR, Westergren <1 mm/hr 09/05/2023 23:06 EDT Sodium Level 137 mmol/L 09/05/2023 23:06 EDT Potassium Level 3.8 mmol/L 09/05/2023 23:06 EDT Chloride Level 101 mmol/L 09/05/2023 23:06 EDT CO2 28 mmol/L 09/05/2023 23:06 EDT Alk Phos 72 IntlUnit/L 09/05/2023 23:06 EDT AST 24 IntlUnit/L 09/05/2023 23:06 EDT ALT 33 IntlUnit/L 09/05/2023 23:06 EDT BUN 12 mg/dL 09/05/2023 23:06 EDT Glucose Level 137 mg/dL 09/05/2023 23:06 EDT Creatinine Level 1.30 mg/dL 09/05/2023 23:06 EDT BUN/Creat Ratio 9.2 09/05/2023 23:06 EDT eGFR CKD-EPI 73 mL/min/1.73 m2 09/05/2023 23:06 EDT Calcium Level 9.2 mg/dL 09/05/2023 23:06 EDT Protein Total 6.9 g/dL 09/05/2023 23:06 EDT Albumin Level 4.2 g/dL 09/05/2023 23:06 EDT Globulin 2.7 g/dL 09/05/2023 23:06 EDT A/G Ratio 1.6 g/dL 09/05/2023 23:06 EDT Bilirubin Total 0.3 mg/dL 09/05/2023 23:06 EDT Anion Gap 8.0 09/05/2023 23:06 EDT Magnesium Level 2.2 mg/dL 09/05/2023 23:06 EDT Osmolality 276 mOsm/kg 09/05/2023 23:06 EDT Patient/Treer Signature Patient Name:REBEKA ROTH I have received this information and my questions have been answered. Patient/Treer Name: Patient/Treer Signature: Relationship to Patient: Witness Name/Signature: Date: Electronically Signed on: 09/06/2023 00:30 EDTSigned by:LISS
--- OUTSIDE RECORDS SUMMARY | 2023-10-20 19:59 | XMS_ITS | Encounter Summary ---
Author Organization [facility] Address [address] [place] [address] Care Team Providers Care Sort Manager Name Role Phone Unknown, Provider Primary Care Provider [phone] Encounter Details Date Type Department Care Team (Late st Contact Info) Description 12/02/2011 Results Only [facility] Laboratory Services - [facility] ([facility]) [address] [place], [place] [address] Ambrosio Felix MD [address] [place], [place] [id number] Social History Tobacco Use Types Packs/Day Years Used Date Smoking Tobacco: Never Assessed Sex and Gender Information Value Date Recorded Sex Assigned at Not on file Gender Identity Not on file Sexual Orientation Not on file documented as of this encounter Plan of Treatment Not on file documented as of this encounter Procedures Procedure Name Priority Date/Time Associated Diagnosis Comments SURGICAL PATHOLOGY Routine 12/02/2011 0:00 EDT documented in this encounter Results * SURGICAL PATHOLOGY (12/02/2011 0:00 EDT) Pathology Report: SURGICAL PATHOLOGY REPORT Reports generated via electronic interface contain original data; however they are lacking the format of the original report. Caution should be taken when reading/interpreti ng unformatted reports. Name: ? REBEKA ROTH ? Accession #: ? [id number] ? : ? 1985 (Age: 26) ??M ? Collect Date: ? 12/02/2011 ? Location: ? [facility] ? Receive Date: ? 12/03/2011 ? Provider: AMBROSIO FELIX MD Copy to: BYRON CORONADO MD ? Final Pathologic Diagnosis: ? Appendix, appendectomy: 1. ?Mild acute mucosal appendicitis. ??See comment 2. ? Chronic organizing serositis. 3. ? Margin of resection is viable and free of inflammation. ?? Comment: ? The entire appendix was submitted for histologic examination. ?? Document reviewed and electronically signed by: NONI STANLEY MD Report ??Date: 12/09/2011 09:29 By the signature above, the attending physician certifies that he/she has personally conducted a gross and/or microscopic examination of the described specimens and rendered or confirmed the above diagnosis. Specimen(s) Received: ? Appendix Clinical History: ? Appendicitis Gross Description: ? Received in formalin labelled Rebeka Roth and appendix is a vermiform appendix measuring 7.2 cm in length and ranges from 0.6-0.7 cm in diameter. ??The serosa is vasquez-pink and focally hyperemic. ??There is a moderate amount of attached mesoappendix. ??At the distal aspect there is a red-brown diffusely hemorrhagic 2.0 cm in greatest dimension attached lobules of fibroadipose tissue. ??Upon sectioning, the lumen ranges from 0.1-0.4 cm in diameter and contains a moderate amount of red-brown friable material. ??The wall averages 0.2 cm in thickness and has no discrete nodules nor perforations grossly present. ??Three bilingual inside sales representative sections are submitted as (A1), which includes the inked proximal margin en face, one cross section, and one-half of the distal end. ??Remaining appendix is submitted as (A2) through (A5). ??The hemorrhagic attached soft tissue is submitted as (A6) and (A7). ??(Burton Ponce)/mms ?? End of Report [facility] 12/02/2011 12/03/2011 21: 12 EDT Ambrosio Felix MD PATHOLOGY ORDERABLES Performing Organization Address City/State/[facility] Co de Phone Number [facility] [address] [place] [address] documented in this encounter Visit Diagnoses Not on filedocumented in this encounter Care Teams Sort Manager Relationship Specialty Start Date End Date Unknown, Provider, PCP - General 12/03/11 documented as of this encounter
--- OUTSIDE RECORDS SUMMARY | 2023-10-20 19:59 | XMS_ITS | Referral Summary ---
Author Organization [facility] Address [address] [place] [address] Care Team Providers Care Compensation Agent Name Role Phone Unknown, Provider Primary Care Provider [phone] Social History Tobacco Use Types Packs/Day Years Used Date Smoking Tobacco: Never Assessed Sex and Gender Information Value Date Recorded Sex Assigned at Not on file Gender Identity Not on file Sexual Orientation Not on file Plan of Treatment Not on file Care Teams Compensation Agent Relationship Specialty Start Date End Date Unknown, Provider, PCP - General 12/03/11
[2023-10-26 05:53] LABS: Methylphenidate 752 ng/mL (Cutoff: 10); Ritalinic Acid 9584 ng/mL (Cutoff: 50)
== END 2023-10-20 19:58 | disposition home or self-care (01) ==
LOC: NCHCN 19:57
PROVIDERS: PCP Family Medicine; Visit Provider Student in an Organized Health Care Education/Training Program
DX: F90.9 Attention-deficit hyperactivity disorder, unspecified type (principal); Z79.899 Other long term (current) drug therapy
CPT/HCPCS: 80360

== ENCOUNTER 2023-12-29 15:43 | Outpatient (REF) | payer OTHER, SELFPAY ==
--- OUTSIDE RECORDS SUMMARY | 2023-12-29 15:46 | XMS_ITS | Referral Summary ---
Author Organization [facility] Address [address] [place] [address] Care Team Providers Care Infertility Nurse Name Role Phone Unknown, Provider Primary Care Provider [phone] Social History Tobacco Use Types Packs/Day Years Used Date Smoking Tobacco: Never Assessed Sex and Gender Information Value Date Recorded Sex Assigned at Not on file Gender Identity Not on file Sexual Orientation Not on file Plan of Treatment Not on file Care Teams Infertility Nurse Relationship Specialty Start Date End Date Unknown, Provider, PCP - General 12/03/11
--- OUTSIDE RECORDS SUMMARY | 2023-12-29 15:46 | XMS_ITS | Encounter Summary ---
Author Organization [facility] Address [address] [place] [address] Care Team Providers Care Concrete Pipe Maker Name Role Phone Unknown, Provider Primary Care Provider [phone] Encounter Details Date Type Department Care Team (Late st Contact Info) Description 03/27/2020 Lab Requisition [facility] Pathology & Laboratory Medicine - [address] [address] Outr Resulting Lab, Provider Social History Tobacco [...] Priority Date/Time Associated Diagnosis Comments ZZCOVID-19 TEST [facility] PCR Today 03/26/2020 17:40 EST COVID-19 TESTING Routine 03/26/2020 17:4 0 EST documented in this encounter Results * COVID-19 TEST [facility] PCR (03/26/2020 17:40 EST) Swab ENTIRE NASOPHARYNX / Unknown 03/26/2020 17:40 EST 03/27/2020 15:42 EST Provider Outr Resulting Lab MICROBIOLOGY - GENERAL ORDERABLES [facility] [address] [place] [address] * COVID-19 TESTING (03/26/2020 17:40 EST) COVID-19 rt-PCR Result Negative Negative 03/28/2020 15:02 EST [facility] Comment: Negative results do not preclude 2019-nCoV infection and should not be used as the sole basis for treatment or other patient management decisions. Negative results must be combined with clinical observations, patient history, and epidemiological information. This test was developed and its performance characteristics determined by [facility]. It has not been cleared or approved [...] testing. This test is based on the [facility] COVID-19 Emergency Use Authorization (EUA) assay, with minor modification as defined by the FDA Performed on the [employer] Flex. Performing Lab [facility] 03/28/2020 15:02 EST [facility] Swab 03/26/2020 17:4 0 EST 03/27/2020 15:42 EST Provider Outr Resulting Lab MICROBIOLOGY - GENERAL ORDERABLES [facility] [address] [place] [address] documented in this encounter Visit Diagnoses Not on filedocumented in this encounter Care Teams Concrete Pipe Maker Relationship Specialty Start Date End Date Unknown, Provider, PCP - General 12/03/11 documented as of this encounter
--- OUTSIDE RECORDS SUMMARY | 2023-12-29 15:46 | XMS_ITS | Encounter Summary ---
Author Organization [facility] Address [address] [place] [address] Care Team Providers Care Mobile Electronics Installer Name Role Phone Unknown, Provider Primary Care Provider [phone] Encounter Details Date Type Department Care Team (Late st Contact Info) Description 12/02/2011 Results Only [facility] Laboratory Services - [facility] ([facility]) [address] [place], [place] [address] Ambrosio Felix MD [address] [place], [place] [id number] Social History Tobacco Use Types Packs/Day Years [...] ? REBEKA ROTH ? Accession #: ? [id number] ? : ? 1985 (Age: 26) ??M [...] discrete nodules nor perforations grossly present. ??Three chemical sales representative sections are submitted as (A1), [...] Felix MD PATHOLOGY ORDERABLES Performing Organization Address City/State/[facility] Co de Phone Number [facility] [address] [place] [address] documented in this encounter Visit Diagnoses Not on filedocumented in this encounter Care Teams Mobile Electronics Installer Relationship Specialty Start Date End Date Unknown, Provider, PCP - General 12/03/11 documented as of this encounter
--- OUTSIDE RECORDS SUMMARY | 2023-12-29 15:46 | XMS_ITS | Clinical Summary ---
Author Organization [facility] Address [address] [place] [address] Care Team Providers Care Group Fitness Instructor Name Role Phone Unknown, Provider Primary Care Provider [phone] Social History Tobacco Use Types Packs/Day Years [...] COVID-19 Vaccine ( season) 2022 Care Teams Group Fitness Instructor Relationship Specialty Start Date End Date Unknown, Provider, PCP - General 12/03/11
[2023-12-31 15:28] LABS: Chlamydia Result Negative (Negative); GC Result Negative (Negative)
== END 2023-12-29 15:44 | disposition home or self-care (01) ==
LOC: NCHCN 15:43
PROVIDERS: PCP Family Medicine; Visit Provider Family Medicine
DX: R35.0 Frequency of micturition (principal)
CPT/HCPCS: 87491; 87591; 87086

== ENCOUNTER 2024-01-01 13:21 | Outpatient (REF) | payer OTHER, SELFPAY ==
--- OUTSIDE RECORDS SUMMARY | 2024-01-01 13:22 | XMS_ITS | Encounter Summary ---
Author Organization [facility] Address [address] [place] [address] Care Team Providers Care Desktop Support Consultant Name Role Phone Unknown, Provider Primary Care Provider [phone] Encounter Details Date Type Department Care Team (Late st Contact Info) Description 03/27/2020 Lab Requisition [facility] Pathology & Laboratory Medicine - [address] [address] Outr Resulting Lab, Provider Social History Tobacco [...] Priority Date/Time Associated Diagnosis Comments [facility]-19 [facility] Today 03/26/2020 17:40 EST COVID-19 TESTING Routine 03/26/2020 17:4 0 EST documented in this encounter Results * COVID-19 TEST [facility] PCR (03/26/2020 17:40 EST) Swab ENTIRE NASOPHARYNX / Unknown 03/26/2020 17:40 EST 03/27/2020 15:42 EST Provider Outr Resulting Lab MICROBIOLOGY - GENERAL ORDERABLES [facility] [address] [place] [address] * COVID-19 TESTING (03/26/2020 17:40 EST) COVID-19 rt-PCR Result Negative Negative 03/28/2020 15:02 EST [facility] Comment: Negative results do not preclude 2019-nCoV infection and should not be used as the sole basis for treatment or other patient management decisions. Negative results must be combined with clinical observations, patient history, and epidemiological information. This test was developed and its performance characteristics determined by [facility]. It has not been cleared [...] This test is based on the [facility] COVID-19 Emergency Use Authorization (EUA) assay, with minor modification as defined by the FDA Performed on the [employer] Flex. Performing Lab [facility] 03/28/2020 15:02 EST [facility] Swab 03/26/2020 17:4 0 EST 03/27/2020 15:42 EST Provider Outr Resulting Lab MICROBIOLOGY - GENERAL ORDERABLES [facility] [address] [place] [address] documented in this encounter Visit Diagnoses Not on filedocumented in this encounter Care Teams Desktop Support Consultant Relationship Specialty Start Date End Date Unknown, Provider, PCP - General 12/03/11 documented as of this encounter
--- OUTSIDE RECORDS SUMMARY | 2024-01-01 13:22 | XMS_ITS | Referral Summary ---
Author Organization [facility] Address [address] [place] [address] Care Team Providers Care Miller Head Wet Process Name Role Phone Unknown, Provider Primary Care Provider [phone] Encounters Date Type Department Care Team Description 12/30/2023 Lab Requisition [facility] Pathology & Laboratory Medicine - [facility] [address] [place] [address] Outr Resulting Lab, Provider from Last 3 Months Social History Tobacco Use Types Packs/Day Years Used Date Smoking Tobacco: Never Assessed Sex and Gender Information Value Date Recorded Sex Assigned at Not on file Gender Identity Not on file Sexual Orientation Not on file Plan of Treatment Not on file Procedures Procedure Name Priority Date/Time Associated Diagnosis Comments CHLAMYDIA/N. GONORRHOEAE AMPLIFIED NUCLEIC ACID Routine 12/29/2023 14:20 EDT from Last 3 Months Results * CHLAMYDIA/N. GONORRHOEAE AMPLIFIED NUCLEIC ACID (12/29/2023 14:20 EDT) Neisseria gonorrhoeae Result Negative Negative 12/31/2023 15:23 EDT [facility] Chlamydia trachomatis Result Negative Negative 12/31/2023 15:23 EDT [facility] Urine URINE / Unknown 12/29/2023 1 4:20 EDT 12/30/2023 18:36 EDT Provider Outr Resulting Lab MICROBIOLOGY - GENERAL ORDERABLES [facility] [address] [place], [place] [address] from Last 3 Months Care Teams Miller Head Wet Process Relationship Specialty Start Date End Date Unknown, Provider, PCP - General 12/03/11
--- OUTSIDE RECORDS SUMMARY | 2024-01-01 13:22 | XMS_ITS | Clinical Summary ---
Author Organization [facility] Address [address] [place] [address] Care Team Providers Care Oracle Financials Consultant Name Role Phone Unknown, Provider Primary Care Provider [phone] Encounters Date Type Department Care Team Description 12/30/2023 Lab Requisition [facility] Pathology & Laboratory Medicine - [facility] [address] [place] [address] Outr Resulting Lab, Provider from Last 3 [...] 3-dose series) 03/13 COVID-19 Vaccine ( season) 2023 Procedures Procedure Name Priority Date/Time Associated Diagnosis Comments CHLAMYDIA/N. GONORRHOEAE AMPLIFIED NUCLEIC ACID Routine 12/29/2023 14:20 EDT from Last 3 Months Results * CHLAMYDIA/N. GONORRHOEAE AMPLIFIED NUCLEIC ACID (12/29/2023 14:20 EDT) Neisseria gonorrhoeae Result Negative Negative 12/31/2023 15:23 EDT [facility] Chlamydia trachomatis Result Negative Negative 12/31/2023 15:23 EDT [facility] Urine URINE / Unknown 12/29/2023 1 4:20 EDT 12/30/2023 18:36 EDT Provider Outr Resulting Lab MICROBIOLOGY - GENERAL ORDERABLES [facility] [address] [place] [address] from Last 3 Months Care Teams [employer] Consultant Relationship Specialty Start Date End Date Unknown, Provider, PCP - General 12/03/11
--- OUTSIDE RECORDS SUMMARY | 2024-01-01 13:22 | XMS_ITS | Encounter Summary ---
Author Organization [facility] Address [address] [place] [address] Care Team Providers Care Etcher Electrolytic Name Role Phone Unknown, Provider Primary Care Provider [phone] Encounter Details Date Type Department Care Team (Late st Contact Info) Description 12/02/2011 Results Only [facility] Laboratory Services - [facility] ([facility]) [address] [place], [place] [address] Ambrosio Felix MD [address] [place], [place] [id number] Social History Tobacco Use Types Packs/Day Years [...] ? REBEKA ROTH ? Accession #: ? [id number] ? : ? 1985 (Age: 26) ??M [...] ?? Document reviewed and electronically signed by: ONNI STANLEY MD Report ??Date: 12/09/2011 09:29 By [...] discrete nodules nor perforations grossly present. ??Three customer relations representative sections are submitted as (A1), which [...] Felix MD PATHOLOGY ORDERABLES Performing Organization Address City/State/[facility] Co de Phone Number [facility] [address] [place] [address] documented in this encounter Visit Diagnoses Not on filedocumented in this encounter Care Teams Etcher Electrolytic Relationship Specialty Start Date End Date Unknown, Provider, PCP - General 12/03/11 documented as of this encounter
--- OUTSIDE RECORDS SUMMARY | 2024-01-01 13:22 | XMS_ITS | Encounter Summary ---
Author Organization [facility] Address [address] [place] [address] Care Team Providers Care Agricultural Engineering Technologist Name Role Phone Unknown, Provider Primary Care Provider [phone] Encounter Details Date Type Department Care Team (Late st Contact Info) Description 12/30/2023 Lab Requisition [facility] Pathology & Laboratory Medicine - [address] [address] Outr Resulting Lab, Provider Social History Tobacco [...] AMPLIFIED NUCLEIC ACID Routine 12/29/2023 14:20 EDT documented in this encounter Results * CHLAMYDIA/N. GONORRHOEAE AMPLIFIED NUCLEIC ACID (12/29/2023 14:20 EDT) Neisseria gonorrhoeae Result Negative Negative 12/31/2023 15:23 EDT [facility] Chlamydia trachomatis Result Negative Negative 12/31/2023 15:23 EDT [facility] Urine URINE / Unknown 12/29/2023 1 4:20 EDT 12/30/2023 18:36 EDT Provider Outr Resulting Lab MICROBIOLOGY - GENERAL ORDERABLES [facility] [address] [place] [address] documented in this encounter Visit Diagnoses Not on filedocumented in this encounter Care Teams Agricultural Engineering Technologist Relationship Specialty Start Date End Date Unknown, Provider, PCP - General 12/03/11 documented as of this encounter
[2024-01-01 18:24] LABS: Bacteria Rare HPF (Negative); C & S Indicated? No; Casts Negative LPF (Negative); Crystals Moderate Amorphous HPF (Negative); Epithelial Cells Negative HPF (Negative); Mucus Negative (Negative); RBC Negative HPF (0-2); WBC Negative HPF (0-5)
[2024-01-03 11:28] LABS: Hepatitis C Ab w Rflx HCV PCR Negative (Negative)
[2024-01-03 11:47] LABS: Syphilis Serology (RPR) Negative (Negative)
[2024-01-03 11:56] LABS: HIV-1/2 Ag & Ab Screen Negative (Negative)
== END 2024-01-01 13:22 | disposition home or self-care (01) ==
LOC: LBN 13:21
PROVIDERS: PCP Family Medicine; Visit Provider Nurse Practitioner Family
DX: Z11.3 Encounter for screening for infections with a predominantly sexual mode of transmission (principal); R30.0 Dysuria
CPT/HCPCS: 86803; 87389; 81015; 86592

== ENCOUNTER 2024-09-29 17:56 | Outpatient (REF) | payer OTHER, SELFPAY | END 2024-09-29 17:57 | disposition home or self-care (01) | LOC: NCHCN 17:56 | PROVIDERS: PCP Student in an Organized Health Care Education/Training Program; Visit Provider Student in an Organized Health Care Education/Training Program | DX: F90.9 Attention-deficit hyperactivity disorder, unspecified type (principal); Z79.899 Other long term (current) drug therapy | CPT/HCPCS: 80360 ==